=== PATIENT | female | born 1960 | race Caucasian/White ===

== ENCOUNTER 2016-08-06 18:38 | Emergency (ER) | payer BC, OTHER ==
[2016-08-06 18:51] VITALS: RESP 18
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
[2016-08-06] MEDS ORDERED: CYCLOBENZAPRINE 10MG STARTER 3 TAB BTL PO STA (20:06)
[2016-08-06 20:23] VITALS: BP 148/66; PULSE 70; TEMP 98.2
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
== END 2016-08-06 20:20 | disposition home or self-care (01) ==
LOC: EC 18:38
DX: S76.011A Strain of muscle, fascia and tendon of right hip, initial encounter (principal); S20.211A Contusion of right front wall of thorax, initial encounter; Z79.899 Other long term (current) drug therapy; Z88.0 Allergy status to penicillin; V87.7XXA Person injured in collision between other specified motor vehicles (traffic), initial encounter; Y92.410 Unspecified street and highway as the place of occurrence of the external cause
CPT/HCPCS: 71020; 73502; 99284